=== PATIENT | male | born 2000 | race Hispanic/Latino ===

== ENCOUNTER 2021-02-25 19:48 | Emergency (ER) | payer BC ==
[2021-02-25] MEDS ORDERED: methylPREDNISolone Sod Succ/PF 125 MG/2 ML VIAL ONE (20:41)
== END 2021-02-25 21:50 | disposition home or self-care (01) ==
LOC: ERS 19:48
DX: T78.40XA Allergy, unspecified, initial encounter (principal); J45.909 Unspecified asthma, uncomplicated
CPT/HCPCS: 96374; J2930